=== PATIENT | male | born 1985 | race Caucasian/White ===

== ENCOUNTER → 2025-01-16 | Day surgery (SDC) | payer BC ==
[~2025-01-16] MED LIST: BUPIVACAINE LIPOSOME/PF 266 MG/20 ML IJ ONE; CEFAZOLIN SODIUM 2 GM ONE; DEXAMETHASONE SOD PHOS INJ 4 MG/ML SDV ONE; FENTANYL CITRATE/PF 100MCG/2 ML INJ ONE; HYDROCODONE-AC473 M1; LACTATED RINGER'S 1,000 ML ONE; LIDOCAINE HCL 2% LOCAL INJ 5 ML SDV VIAL INJ ONE; LOSARTAN POTASS25 MG PO; LYRICA25 MG PO; OMEPRAZOLE40 MG PO; ONDANSETRON HCL INJ 2MG/ML 2ML 2 MG/ML VIAL ONE; PROPOFOL IV EMULSION 10 MG/ML 20 ML VIAL ONE; ROCURONIUM BROMIDE 1 ML IV ONE; SUGAMMADEX SODIUM 200 MG/2 ML VIAL IV ONE
[2025-01-16 10:45] VITALS: TEMP 97
[2025-01-16] MEDS: MEPERIDINE HCL INJ 25 MG/ML VIAL ONE (11:16)
[2025-01-16] MEDS: ALBUTEROL/IPRATROPIUM 3 ML NEB ONE (11:23)
[2025-01-16] MEDS: HYDROMORPHONE 1MG/1ML INJ ONE (11:30)
[2025-01-16 12:10] VITALS: BP 132/86; PULSE 82; RESP 16; O2SAT 94
== END | disposition home or self-care (01) ==
LOC: OR 05:29
PROVIDERS: ATTEND Orthopaedic Surgery Sports Medicine
DX: S46.012A Strain of muscle(s) and tendon(s) of the rotator cuff of left shoulder, initial encounter (principal); S43.432A Superior glenoid labrum lesion of left shoulder, initial encounter; S46.112A Strain of muscle, fascia and tendon of long head of biceps, left arm, initial encounter; M25.812 Other specified joint disorders, left shoulder; M75.52 Bursitis of left shoulder; X50.0XXA Overexertion from strenuous movement or load, initial encounter; I10 Essential (primary) hypertension; K21.9 Gastro-esophageal reflux disease without esophagitis; F17.200 Nicotine dependence, unspecified, uncomplicated; Z01.810 Encounter for preprocedural cardiovascular examination
CPT/HCPCS: 23430; 29826; 29827; 93005; C1713 ×4; C1763; J0666; J1100; J1171; J2003; J2175; J2405; J2704; J3010; J3590; J7121